=== PATIENT | female | born 1960 | race Two or more races ===

== ENCOUNTER 2016-10-23 12:26 | Emergency (ER) | payer SELFPAY ==
[~2016-10-23] VITALS: Ht 154.9 cm; Wt 80.0 kg
[2016-10-23 12:36] VITALS: BP 155/91
== END 2016-10-23 14:51 | disposition home or self-care (01) ==
LOC: ED 14:06
DX: S92.352A Displaced fracture of fifth metatarsal bone, left foot, initial encounter for closed fracture (principal); Z88.1 Allergy status to other antibiotic agents; X58.XXXA Exposure to other specified factors, initial encounter; Y93.89 Activity, other specified; Y99.8 Other external cause status; Y92.009 Unspecified place in unspecified non-institutional (private) residence as the place of occurrence of the external cause
CPT/HCPCS: 99284